=== PATIENT | male | born 1975 | race Caucasian/White ===

== ENCOUNTER 2021-05-30 19:10 | Inpatient (IN) ==
[2021-05-30] MEDS ORDERED: ACETAMINOPHEN 1,000 MG/100 ML VIAL IV STA (20:27)
--- NOTE | 2021-05-30 20:39 | Emergency Department Note ---
Impression & Plan Abdominal pain, Renal transplant recipient, Acute pancreatitis ED Provider Note NAME: RD WHITE AGE: 45 SEX: M : 1975 ARRIVES VIA: Walk-In INFORMANT: Patient, ED PROVIDER(S): Carlo Carlson MD CHIEF COMPLAINT: abd pain HPI: Previous records reveal this patient was here in June 2020 for pancre atitis. 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 The patient reports he has been having left upper quadrant abdominal pain that feels like pancreatitis although he has had normal amylase and lipase levels drawn as an outpatient. He reports breathing makes the pain worse and nothing really makes the pain better. ROS: See above HPI for pertinent positives & negatives. A total of 10 systems reviewed and were otherwise negative. PAST MEDICAL HISTORY: See Below PAST SURGICAL HISTORY: See Below FAMILY HISTORY: See Below SOCIAL HISTORY: See Below HOME MEDICATIONS: See Below ALLERGIES: See Below VITALS: See Below PHYSICAL EXAMINATION: VITAL SIGNS - Vital signs and nursing notes were reviewed. GENERAL - 45-year-old male appearing stated age who is in moderate distress. Communicates well with provider and answers questions appropriately. SKIN - Without rashes. HEAD - NC/AT. EYES - PERRL with EOMI bilaterally. Sclera anicteric. Palpebral conjunctiva pink and moist with no injection noted. EARS - No deformities of external structures noted on gross examination bilaterally. NOSE - Midline and without cyanosis. No epistaxis or purulent drainage noted. Septum midline without deviation or septal hematoma noted. MOUTH/OROPHARYNX - Without perioral cyanosis. Buccal mucosa pink and moist and without leukoplakia. Tongue midline with equal elevation of palate bilaterally. No tonsillar hypertrophy, erythema, or exudates noted. NECK - Neck with FROM. Supple to palpation. No nuchal rigidity. LUNGS - Chest wall symmetric without accessory muscle use, intercostals retractions, or central cyanosis. Normal vesicular breath sounds CTA B/L. No wheezes, rales, or rhonchi appreciated. CARDIAC - RRR with S1/S2. No murmur, rubs, or gallops appreciated. ABDOMEN - Abdominal contour without pulsations or visible masses. tender throughout abdomen EXTREMITIES - No clubbing or peripheral cyanosis. No pretibial edema present. +3/5 radial, posterior tibial, and dorsalis pedis pulses palpated throughout. +5/5 strength noted in UE/LE bilaterally. NEUROLOGIC - Cranial nerves II through XII grossly intact. Sensory intact to light touch throughout. Patellar reflexes +2/4. PSYCH - A&Ox3 and cooperates fully with examiner. Pt is very pleasant and interacts well with examiner. MEDICAL DECISION MAKING: Patient was seen and evaluated as above in room C1. Review was performed of nursing notes and vital signs. I did review pertinent previous visits and patient history. After obtaining a thorough history and physical examination the above work up was performed. This 45-year-old male who presents emergency department complaining of diffuse abdominal tenderness. The patient has a history of pancreatitis. His lipase was found to be grossly elevated at 1500. His CAT scan which was reviewed by me is concerning for acute on chronic pancreatitis. He was given IV Dilaudid as well as acetaminophen for his pain. I did discuss the case with the hospitalist service who did agree to admit the patient. Patient is in agreement with the treatment plan. An order was placed for continuous cardiac monitoring. The monitor shows a rate of 74 with Normal SInus rhythm. The patient was evaluated during a period of high volume and high acuity during the global COVID-19 pandemic, and that diagnosis was suspected/considered upon their initial presentation. Their evaluation, treatment and testing was consistent with current guidelines for patients who present with complaints or symptoms that may be related to COVID-19. Patient was seen while provider was wearing PPE. Triage Nursing notes reviewed. Prior medical records reviewed Vital Signs: reviewed and remarkable for no significant abnormalities Differential diagnosis: Appendicitis, testicular torsion, infections, diverticulitis, UTI, obstruction, mesenteric ischemia, aortic pathology, inflammatory bowel disease, renal colic, PUD, pancreatitis, biliary pathology, hernia, volvulus, constipation, as well as other pathologies. ER treatment provided: See below Diagnostics interpreted by me: ECG: is EKG shows a normal sinus rhythm possible left atrial enlargement QTC is 450 ventricular rate of [address] elevation or depression there is no previous EKG to compare to Laboratory studies: As stated above and show below. Imaging studies: CT was reviewed by me is concerning for pancreatitis CT abdomen pelvis without contrast: Acute on chronic pancreatitis cholecystectomy and bile biliary ectasia Small low-attenuation focus in the liver. Duodenal diverticulum. Atrophic [place] kidneys. Left nephrolithiasis. Left iliac fossa renal transplant. Atrophic right iliac fossa renal transplant. Colonic diverticula without diverticulitis. Consultation(s): Internal Medicine Past Med/Surg History Medical History Goodpastures syndrome Pancreatitis Surgical History Kidney transplant recipient Social History Smoking Status: Current every day smoker Tobacco Type: Cigarettes Do You Dip or Chew Tobacco: Yes; Hx Alcohol Use: Yes Hx Substance Use: No Preferred Language: Mongolian Communication Ability: Effective Cemetery Worker Required: No Beliefs That Will Affect Care: None Current Living Situation: Spouse Other Information That Helps Us Care for You: No Feels Safe at Home: Yes Safety Concerns: Feels Safe At This Time Assistive Devices: None Allergies Allergies Allergy/AdvReac Type Severity Reaction Status Date / Time lisinopril Allergy Intermediate TONGUE AND Verified 05/30/21 22:56 LIPS SWELL Home Meds Home Medications Medication Instructions Recorded Confirmed carvedilol 12.5 mg tablet 12.5 mg PO BID 06/18/20 05/30/21 mycophenolate mofetil 250 mg 1,000 mg PO BID 06/18/20 05/30/21 capsule (CellCept) tacrolimus 1 mg capsule, 1 mg PO QAM 06/18/20 05/30/21 immediate-release amlodipine 10 mg tablet (Norvasc) 10 mg PO QAM 05/30/21 05/30/21 aspirin 81 mg tablet,delayed 81 mg PO DAILY 05/30/21 05/30/21 release famotidine 10 mg tablet 10 mg PO HS 05/30/21 05/30/21 omeprazole 40 mg capsule,delayed 40 mg PO QAM 05/30/21 05/30/21 release prednisone 5 mg tablet 5 mg PO DAILY 05/30/21 05/30/21 tacrolimus 1 mg capsule, 2 mg PO QPM 05/30/21 05/30/21 immediate-release (Prograf) Results & Data (ED) Vital Signs Vital Signs - 24 hr 05/30/21 23:31 Pulse Rate 71 Pulse Rate from SpO2 Sensor 71 Respiratory Rate 17 Blood Pressure 185/124 H Blood Pressure Mean 144 Pulse Oximetry 99 Home Medications Current Medication List: was personally reviewed by al Laboratory Data Attestation: I reviewed the patient's lab results. Result diagrams: 05/31/21 06:41 05/31/21 06:41 Lab Results 05/30/21 05/30/21 05/30/21 Range/Units 20:45 20:45 20:50 WBC 10.79 (4.8-10.8) K/uL RBC 4.79 (4.7-6.1) M/uL Hgb 16.1 (14.0-18.0) g/dL Hct 48.0 (42-52) % MCV 100.2 H (80-100) fL MCH 33.6 (25-34) pg MCHC 33.5 (32-36) g/dL RDW Std Deviation 53.8 H (36.4-46.3) fL RDW Coeff of Virgil 14.6 H (11.5-14.5) % Plt Count 269 (130-400) K/uL MPV 9.2 (7.4-10.4) fL Immature Gran % (Auto) 0.4 % Neut % (Auto) 83.6 % Lymph % (Auto) 11.0 % [place] % (Auto) 4.3 % Eos % (Auto) 0.5 % Baso % (Auto) 0.2 % Neut # (Auto) 9.03 H (1.4-6.5) K/uL Lymph # (Auto) 1.19 L (1.2-3.4) K/uL [place] # (Auto) 0.46 (0.11-0.59) K/uL Eos # (Auto) 0.05 (0-0.5) K/uL Baso # (Auto) 0.02 (0-0.2) K/uL Immature Gran # (Auto) 0.04 H (0.00-0.02) K/uL Sodium 133 L (136-145) mmol/L Potassium 4.3 (3.5-5.1) mmol/L Chloride 106 (98-107) mmol/L Carbon Dioxide 20 L (21-32) mmol/L Anion Gap 7.0 (3-11) BUN 19 H (7-18) mg/dl Creatinine 1.83 H (0.6-1.4) mg/dl Est Cr Clr Drug Dosing 62.5 ml/min Est GFR ( Amer) 51.2 ml/min Est GFR (Non-Af Amer) 44.2 ml/min BUN/Creatinine Ratio 10.6 (10-20) Glucose 105 H (70-99) mg/dl Calcium 9.3 (8.5-10.1) mg/dl Total Bilirubin 0.5 (0.2-1) mg/dl AST 5 L (15-37) U/L ALT 12 (12-78) U/L Alkaline Phosphatase 116 (45-117) U/L Total Creatine Kinase 22 L (39-308) U/L CK-MB (CK-2) < 1.0 (0.5-3.6) ng/ml CK/CKMB % Calc TNP Troponin I < 0.015 (0-0.045) ng/ml Total Protein 7.3 (6.4-8.2) gm/dl Albumin 3.0 L (3.4-5.0) gm/dl Globulin 4.3 H (2.5-4.0) gm/dl Albumin/Globulin Ratio 0.7 L (0.9-2) Lipase 1597 H (73-393) U/L Urine Color Urine Appearance (Clear) Urine pH (4.5-7.5) Ur Specific Mobile (1.000-1.030) Urine Protein (Negative) Urine Glucose (UA) (Negative) Urine Ketones (Negative) Urine Blood (Negative) Urine Nitrite (Negative) Urine Bilirubin (Negative) Urine Urobilinogen (Negative) Ur Leukocyte Esterase (Negative) Urine WBC (Auto) (0-5) /hpf Urine RBC (Auto) (0-4) /hpf U Hyaline Cast (Auto) (0-5) /lpf U Epithel Cells (Auto) (0-5) /lpf Urine Bacteria (Auto) (Negative) COVID-19 Eval Order Covid19 at [facility] SARS-CoV-2 (PCR) (Negative) 05/30/21 05/30/21 Range/Units 20:50 21:00 WBC (4.8-10.8) K/uL RBC (4.7-6.1) M/uL Hgb (14.0-18.0) g/dL Hct (42-52) % MCV (80-100) fL MCH (25-34) pg MCHC (32-36) g/dL RDW Std Deviation (36.4-46.3) fL RDW Coeff of Virgil (11.5-14.5) % Plt Count (130-400) K/uL MPV (7.4-10.4) fL Immature Gran % (Auto) % Neut % (Auto) % Lymph % (Auto) % [place] % (Auto) % Eos % (Auto) % Baso % (Auto) % Neut # (Auto) (1.4-6.5) K/uL Lymph # (Auto) (1.2-3.4) K/uL [place] # (Auto) (0.11-0.59) K/uL Eos # (Auto) (0-0.5) K/uL Baso # (Auto) (0-0.2) K/uL Immature Gran # (Auto) (0.00-0.02) K/uL Sodium (136-145) mmol/L Potassium (3.5-5.1) mmol/L Chloride (98-107) mmol/L Carbon Dioxide (21-32) mmol/L Anion Gap (3-11) BUN (7-18) mg/dl Creatinine (0.6-1.4) mg/dl Est Cr Clr Drug Dosing ml/min Est GFR ( Amer) ml/min Est GFR (Non-Af Amer) ml/min BUN/Creatinine Ratio (10-20) Glucose (70-99) mg/dl Calcium (8.5-10.1) mg/dl Total Bilirubin (0.2-1) mg/dl AST (15-37) U/L ALT (12-78) U/L Alkaline Phosphatase (45-117) U/L Total Creatine Kinase (39-308) U/L CK-MB (CK-2) (0.5-3.6) ng/ml CK/CKMB % Calc Troponin I (0-0.045) ng/ml Total Protein (6.4-8.2) gm/dl Albumin (3.4-5.0) gm/dl Globulin (2.5-4.0) gm/dl Albumin/Globulin Ratio (0.9-2) Lipase (73-393) U/L Urine Color Yellow Urine Appearance Clear (Clear) Urine pH 5.5 (4.5-7.5) Ur Specific Mobile 1.011 (1.000-1.030) Urine Protein Trace H (Negative) Urine Glucose (UA) Negative (Negative) Urine Ketones Negative (Negative) Urine Blood Trace H (Negative) Urine Nitrite Negative (Negative) Urine Bilirubin Negative (Negative) Urine Urobilinogen Negative (Negative) Ur Leukocyte Esterase Negative (Negative) Urine WBC (Auto) 0 (0-5) /hpf Urine RBC (Auto) 0-4 (0-4) /hpf U Hyaline Cast (Auto) 0 (0-5) /lpf U Epithel Cells (Auto) 10-20 H (0-5) /lpf Urine Bacteria (Auto) Negative (Negative) COVID-19 Eval Order SARS-CoV-2 (PCR) NEGATIVE (Negative) Administered Medications Acetaminophen (Acetaminophen 325 Mg Tab) 650 mg PO Q4H PRN PRN Reason: pain/fever Stop: 06/30/21 01:14 Last Admin: 05/31/21 10:18 Dose: 650 mg Documented by: [id number] Admin: 05/31/21 06:26 Dose: 650 mg Documented by: [id number] Admin: 05/31/21 02:23 Dose: 650 mg Documented by: [id number] Amlodipine Besylate (Amlodipine Besylate 5 Mg Tab) 10 mg PO QAM [facility] Stop: 06/30/21 08:59 Last Admin: 05/31/21 08:46 Dose: 10 mg Documented by: [id number] Aspirin (Aspirin 81 Mg Ectab) 81 mg PO DAILY [facility] Stop: 06/30/21 08:59 Last Admin: 05/31/21 08:46 Dose: 81 mg Documented by: [id number] Carvedilol (Carvedilol 12.5 Mg Tab) 12.5 mg PO BID [facility] Stop: 06/30/21 08:59 Last Admin: 05/31/21 21:23 Dose: 12.5 mg Documented by: [id number] Admin: 05/31/21 08:46 Dose: 12.5 mg Documented by: [id number] Enoxaparin Sodium (Enoxaparin Inj 40 Mg/0.4 Ml Syr) 40 mg SQ Q24H [facility] Stop: 06/30/21 05:59 Last Admin: 05/31/21 06:28 Dose: 40 mg Documented by: [id number] Famotidine (Famotidine 10 Mg Tablet) 10 mg PO HS [facility] Stop: 06/30/21 20:59 Last Admin: 05/31/21 21:23 Dose: 10 mg Documented by: [id number] Hydromorphone HCl (Hydromorphone Inj 0.5 Mg/0.5 Ml Syr) 0.5 mg IV Q3H PRN PRN Reason: Pain Stop: 06/14/21 01:14 Last Admin: 05/31/21 22:06 Dose: 0.5 mg Documented by: [id number] Admin: 05/31/21 18:19 Dose: 0.5 mg Documented by: [id number] Admin: 05/31/21 14:20 Dose: 0.5 mg Documented by: [id number] Admin: 05/31/21 11:00 Dose: 0.5 mg Documented by: [id number] Admin: 05/31/21 07:55 Dose: 0.5 mg Documented by: [id number] Admin: 05/31/21 04:32 Dose: 0.5 mg Documented by: [id number] Lactated Ringer's (Lr) 1,000 mls @ 150 mls/hr IV .Q6H40M [facility] Stop: 06/30/21 01:14 Last Admin: 05/31/21 18:18 Dose: 150 mls/hr Documented by: [id number] Infusion: 05/31/21 15:27 Dose: 150 mls/hr Documented by: [id number] Admin: 05/31/21 08:46 Dose: 150 mls/hr Documented by: [id number] Infusion: 05/31/21 08:10 Dose: 150 mls/hr Documented by: [id number] Admin: 05/31/21 01:29 Dose: 150 mls/hr Documented by: [id number] Mycophenolate Mofetil (Mycophenolate Mofetil 250 Mg Cap) 1,000 mg PO BID [facility] Stop: 06/30/21 08:59 Last Admin: 05/31/21 21:23 Dose: 1,000 mg Documented by: [id number] Admin: 05/31/21 08:46 Dose: 1,000 mg Documented by: [id number] Pantoprazole Sodium (Pantoprazole 40 Mg Tab) [facility] Stop: 06/30/21 08:59 Last Admin: 05/31/21 08:46 Dose: 40 mg Documented by: [id number] Prednisone (Prednisone 5 Mg Tab) 5 mg PO DAILY [facility] Stop: 06/30/21 08:59 Last Admin: 05/31/21 08:47 Dose: 5 mg Documented by: [id number] Tacrolimus (Tacrolimus 1 Mg Cap) 1 mg PO QAM [facility] Stop: 06/30/21 08:59 Last Admin: 05/31/21 08:47 Dose: 1 mg Documented by: [id number] Tacrolimus (Tacrolimus 1 Mg Cap) 2 mg PO QPM [facility] Stop: 06/30/21 20:59 Last Admin: 05/31/21 21:23 Dose: 2 mg Documented by: [id number] Discontinued Medications Hydromorphone HCl (Hydromorphone Inj 1 Mg/Ml Syringe) 1 mg IV Q15M PRN PRN Reason: Pain Stop: 06/13/21 20:26 Last Admin: 05/30/21 22:45 Dose: 1 mg Documented by: [id number] Admin: 05/30/21 20:57 Dose: 1 mg Documented by: [id number] Hydromorphone HCl (Hydromorphone Inj 0.5 Mg/0.5 Ml Syr) Confirm Administered Dose 0.5 mg .ROUTE .STK-MED ONE Stop: 05/31/21 01:28 Last Admin: 05/31/21 01:29 Dose: 0.5 mg Documented by: [id number] Acetaminophen (Ofirmev) 1,000 mg in 100 mls @ 400 mls/hr IV NOW STA Stop: 05/30/21 20:41 Last Infusion: 05/30/21 22:01 Dose: 0 mls/hr Documented by: [id number] Admin: 05/30/21 20:57 Dose: 400 mls/hr Documented by: [id number] Imaging Data Radiologist's Impression: Chest X-Ray 05/30/21 20:27 XR chest 1V portable CLINICAL HISTORY: Shortness of breath. COMPARISON STUDY: None. FINDINGS: Lung volumes are normal. Lungs are clear. There is no pneumothorax or pleural effusion. Cardiac size is normal. Mediastinal contours are normal. There is no evidence for pulmonary edema. Surgical clips project over the right lower neck. IMPRESSION: No acute cardiopulmonary findings. ACT 112: Negative or not required by law. Electronically signed by: Jalil Melgar M.D. 05/30/2021 8:54 PM Chest X-Ray 05/30/21 20:27 XR chest 1V portable CLINICAL HISTORY: Shortness of breath. COMPARISON STUDY: None. FINDINGS: Lung volumes are normal. Lungs are clear. There is no pneumothorax or pleural effusion. Cardiac size is normal. Mediastinal contours are normal. There is no evidence for pulmonary edema. Surgical clips project over the right lower neck. IMPRESSION: No acute cardiopulmonary findings. ACT 112: Negative or not required by law. Electronically signed by: Jalil Melgar M.D. 05/30/2021 8:54 PM Abdomen/Pelvis CT 05/30/21 21:51 CT SCAN OF THE ABDOMEN AND PELVIS WITHOUT CONTRAST CLINICAL HISTORY: Diffuse abdominal pain COMPARISON STUDY: No previous studies for comparison. TECHNIQUE: CT scan of the abdomen and pelvis was performed from the lung bases to the proximal femurs. Images are reviewed in the axial, sagittal, and coronal planes. IV contrast was not administered for this examination. A dose lowering technique was utilized adhering to the principles of ALARA. CT DOSE: 951.20 mGy.cm FINDINGS: Lower chest: There are coronary artery calcifications. There are no pleural effusions. Liver: There is AR parenchymal consolidation adjacent to the gallbladder fossa. There is a to small to characterize 11 mm hypodensity within the liver medially beneath the dome of the diaphragm anteriorly Gallbladder: Surgically absent Spleen: Normal in size and attenuation. Pancreas: There are multiple pancreatic calcifications. There is infiltration of the peripancreatic soft tissues. The findings are indicative of acute on chronic pancreatitis. Adrenal glands: There is mild low density adrenal gland thickening Kidneys: The [place] kidneys are markedly atrophic. There is a left lower quadr ant transplant kidney. There is a right lower quadrant transplant kidney with marked cortical atrophy. Bowel: There are no transition zones indicate bowel obstruction. There is colonic diverticulosis. There is no evidence of acute diverticulitis. The appendix appears normal Peritoneum: There is no intraperitoneal free air or abdominal ascites. Vasculature: The abdominal aorta is normal in course and caliber. Adenopathy: None. Pelvic viscera: The bladder, and pelvic viscera are unremarkable. Skeletal structures: There is a suspected small sebaceous cyst within the right inguinal region. No destructive skeletal lesions are visualized IMPRESSION: 1. No evidence of bowel obstruction. No evidence of free air 2. Normal appendix. 3. No evidence of acute diverticulitis. 4. Severe [place]western [place] renal atrophy. 5. Atrophied right iliac fossa transplant kidney 6. Left iliac fossa transplant kidney with minimal collecting system prominence 7. Pancreatic calcifications or peripancreatic infiltration. The findings are indicative of acute on chronic pancreatitis ACT 112: Negative or not required by law. Electronically signed by: Murali Morales M.D. 05/31/2021 7:21 AM Discharge Plan Visit Data Chief Complaint: Abdominal Pain Stated Complaint: ab pain, vomit, nausea ED Provider: Carlo Carlson Discharge Problem: Abdominal pain, Renal transplant recipient, Acute pancreatitis Patient Disposition: Admitted As Inpatient Discharge Instructions Interventions: ED Discharge Assessment Last Done: 05/31/21 00:50 Discharge Problem: Abdominal pain Qualifiers: Abdominal location: unspecified location Qualified Code(s): R10.9 - Unspecified abdominal pain Acute pancreatitis Qualifiers: Pancreatitis type: unspecified pancreatitis type Acute pancreatitis complication: unspecified Qualified Code(s): K85.90 - Acute pancreatitis without necrosis or infection, unspecified
--- NOTE | 2021-05-30 20:55 | XRay Report ---
XR chest 1V portable CLINICAL HISTORY: Shortness of breath. COMPARISON STUDY: None. FINDINGS: Lung volumes are normal. Lungs are clear. There is no pneumothorax or pleural effusion. Car diac size is normal. Mediastinal contours are normal. There is no evidence for pulmonary edema. Surgi hardeep clips project over the right lower neck. IMPRESSION: No acute cardiopulmonary findings. ACT 112: Negative or not required by law. Electronically signed by: Jalil Melgar M.D. 05/30/2021 8:54 PM
[2021-05-30] MEDS: HYDROmorphone INJ 1 MG/ML SYRINGE IV PRN ×2 (20:57→22:45)
[2021-05-30 21:01] LABS: Basophils # (auto) 0.02 K/uL (0-0.2); Basophils % (auto) 0.2 %; Eosinophils # (auto) 0.05 K/uL (0-0.5); Eosinophils % (auto) 0.5 %; Hemoglobin 16.1 g/dL (14.0-18.0); Immature Granulocytes # (auto) 0.04 K/uL (0.00-0.02); Immature Granulocytes % (auto) 0.4 %; Lymphocytes # (auto) 1.19 K/uL (1.2-3.4); Mean Corpuscular Hemoglobin 33.6 pg (25-34); Mean Corpuscular Hgb Conc 33.5 g/dL (32-36); Mean Corpuscular Volume 100.2 fL (80-100); Mean Platelet Volume 9.2 fL (7.4-10.4); Monocytes # (auto) 0.46 K/uL (0.11-0.59); Monocytes % (auto) 4.3 %; Neutrophils # (auto) 9.03 K/uL (1.4-6.5); Neutrophils % (auto) 83.6 %; Platelet Count 269 K/uL (130-400); RDW Coefficient of Variation 14.6 % (11.5-14.5); RDW Standard Deviation 53.8 fL (36.4-46.3); Red Blood Count 4.79 M/uL (4.7-6.1); White Blood Count 10.79 K/uL (4.8-10.8)
[2021-05-30 21:21] LABS: Alanine Aminotransferase 12 U/L (12-78); BUN Creatinine Ratio 10.6 (10-20); Blood Urea Nitrogen 19 mg/dl (7-18); Calcium 9.3 mg/dl (8.5-10.1); Carbon Dioxide 20 mmol/L (21-32); Chloride 106 mmol/L (98-107); Creatinine Clr Calc Pharmacy 62.5 ml/min; Est GFR (African American) 51.2 ml/min; Est GFR (Non-African American) 44.2 ml/min; Glucose 105 mg/dl (70-99); Potassium 4.3 mmol/L (3.5-5.1); Sodium 133 mmol/L (136-145)
[2021-05-30 21:25] LABS: Albumin Globulin Ratio 0.7 (0.9-2); Alkaline Phosphatase 116 U/L (45-117); Aspartate Aminotransferase 5 U/L (15-37); Bilirubin,Total 0.5 mg/dl (0.2-1); Creatine Kinase 22 U/L (39-308); Creatine Kinase MB < 1.0 ng/ml (0.5-3.6); Globulin 4.3 gm/dl (2.5-4.0); Lipase 1597 U/L (73-393); Total Protein 7.3 gm/dl (6.4-8.2); Troponin I < 0.015 ng/ml (0-0.045)
[2021-05-30 21:35] LABS: Appearance Urine Clear (Clear); Bacteria Urine Automated Negative (Negative); Bilirubin Urine Negative (Negative); Blood Urine Trace (Negative); Cast Urine Automated 0 /lpf (0-5); Color Urine Yellow; Glucose Urine UA Negative (Negative); Ketones Urine Negative (Negative); Leukocyte Esterase Urine Negative (Negative); Nitrite Urine Negative (Negative); Protein Urine Trace (Negative); RBC Urine Automated 0-4 /hpf (0-4); Specific Gravity Urine 1.011 (1.000-1.030); Urobilinogen Urine Negative (Negative); WBC Urine Automated 0 /hpf (0-5); pH Urine 5.5 (4.5-7.5)
--- NOTE | 2021-05-31 01:13 | History and Physical Report ---
DATE OF ADMISSION: 05/30/2021. CHIEF COMPLAINT: Abdominal pain. HISTORY OF PRESENT ILLNESS: This is a 45-year-old male with past medical history significant for hyperlipidemia, hypothyroidism, pulmonary hypertension, history of chronic membranous glomerulonephritis, end-stage renal disease, status post renal transplant, history of alcoholism, history of anemia of chronic renal failure, history of ongoing tobacco abuse, presents with abdominal pain. The patient says he is having abdominal pain ongoing for 1 month. He was prescribed PPI, but it is not helping.Having nausea. He has lost his appetite and states he has lost some weight. The pain was not getting better, so came to the ER today. Imaging studies show acute on chronic pancreatitis and lipase is elevated at 1597. Currently hemodynamics are stable. Denies any other complaints. Normal bowel and bladder movements. Denies any hematuria or blood in the stools. He says sometimes he gets chest pain, shortness of breath, severe pain coming from his abdomen. Has smoker's cough. No fevers, no headache, no blurred visions, no earache, no runny nose, no sore throat, no dysphagia. ALLERGIES: LISINOPRIL. PAST MEDICAL HISTORY: As mentioned above. PAST SURGICAL HISTORY: ERCP, EGDs, exploration of the parathyroid glands, laparoscopic cholecystectomy, tonsillectomy, adenoidectomy, transplantation of kidneys in 2004 and also in 2018. MEDICATIONS: The patient is on amlodipine 10 mg p.o. daily, aspirin 81 mg p.o. daily, Coreg 12.5 mg p.o. b.i.d., famotidine 10 mg p.o. at bedtime, CellCept 1000 mg p.o. b.i.d., omeprazole 40 mg p.o. a.m., prednisone 5 mg p.o. daily, tacrolimus 1 mg p.o. a.m. and 2 mg p.m. FAMILY HISTORY: Significant for mother has diabetes. Father has esophageal cancer. SOCIAL HISTORY: Smokes half pack a day for last 20 years. History of alcoholism. Currently, drinks as per [place], occasional. No drug use. REVIEW OF SYSTEMS: As per HPI. Rest of the review of systems is negative. PHYSICAL EXAMINATION: GENERAL: The patient is of moderate build, not in acute distress. VITAL SIGNS: Temperature 36, pulse 76, respiratory rate 13, blood pressure 149/111, oxygen 100% on room air. HEENT: Pupils equal, round and reactive to light. Oral mucosa moist. NECK: No JVD or neck masses. HEART: S1 and S2 heard. Regular rate and rhythm. No murmur, no gallop. RESPIRATORY SYSTEM: Normal AP diameter. No accessory muscle use. No wheezing, no crackles. ABDOMEN: Soft, bowel sounds present. Tenderness in the upper abdomen. Mild guarding, no rigidity, no distention. No CVA tenderness. CENTRAL NERVOUS SYSTEM: Cranial nerves II through XII are grossly intact, nonfocal. EXTREMITIES: No edema, no erythema. LABORATORY DATA: WBC 10.7, hemoglobin 16.1, hematocrit 48, platelets 269. Sodium 133, potassium 4.3, chloride 106, bicarbonate 20, BUN 19, creatinine 1.8, serum glucose 105, calcium 9.3, total bilirubin 0.5, AST 5, ALT 12, alkaline phosphatase 116, total creatinine kinase 22. Troponin I less than 0.015. Lipase 1597. Urinalysis: Trace blood. SARS-CoV-2 PCR negative. Chest x-ray, no acute findings. EKG: Normal sinus rhythm, rate of 69, no acute ST changes seen. CT of abdomen and pelvis shows acute on chronic pancreatitis. ASSESSMENT AND PLAN: This is a 45-year-old male who presents with abdominal pain and found to have acute on chronic pancreatitis. 1. Acute on chronic pancreatitis. We will keep him n.p.o., IV Ringer's lactate 150 mL per hour. Repeat lactic acid in a.m. IV Dilaudid p.r.n., IV Zofran p.r.n. Consult GI in the a.m. 2. History of chronic membranous glomerulonephritis status post renal transplant twice, last one was done 3 years ago. Continue his transplant medications. Cr 1.8 We will monitor for any volume overload and follow labs.. 3. History of hypertension: Continue his Coreg, amlodipine. We will monitor the blood pressure. 4. GERD. Continue famotidine and omeprazole. 5. Ongoing tobacco abuse. Needs counseling. 6. Deep venous thrombosis prophylaxis, Lovenox. DISPOSITION: Admit to medical floor. Expect to discharge home. Follow up with family doctor. Job ID: [id number] [facility]
[2021-05-31] MEDS ORDERED: ONDANSETRON INJ 2 MG/ML 2 ML VIAL IV PRN (01:15)
[2021-05-31] MEDS ORDERED: HYDROmorphone INJ 0.5 MG/0.5 ML SYR ONE (01:27)
[2021-05-31] MEDS: LACTATED RINGER'S 1,000 ML IV SCH ×4 (01:29→23:39)
[2021-05-31] MEDS: ACETAMINOPHEN 325 MG TAB PO PRN ×4 (02:23→23:38)
[2021-05-31] MEDS: HYDROmorphone INJ 0.5 MG/0.5 ML SYR IV PRN ×6 (04:32→22:06)
[2021-05-31] MEDS: ENOXAPARIN INJ 40 MG/0.4 ML SYR SQ SCH (06:28)
--- NOTE | 2021-05-31 07:22 | CT Scan Report ---
CT SCAN OF THE ABDOMEN AND PELVIS WITHOUT CONTRAST CLINICAL HISTORY: Diffuse abdominal pain COMPARISON STUDY: No previous studies for comparison. TECHNIQUE: CT scan of the abdomen and pelvis was performed from the lung bases to the proximal femurs . Images are reviewed in the axial, sagittal, and coronal planes. IV contrast was not administered fo r this examination. A dose lowering technique was utilized adhering to the principles of ALARA. CT DOSE: 951.20 mGy.cm FINDINGS: Lower chest: There are coronary artery calcifications. There are no pleural effusions. Liver: There is AR parenchymal consolidation adjacent to the gallbladder fossa. There is a to small t o characterize 11 mm hypodensity within the liver medially beneath the dome of the diaphragm anterior ly Gallbladder: Surgically absent Spleen: Normal in size and attenuation. Pancreas: There are multiple pancreatic calcifications. There is infiltration of the peripancreatic s oft tissues. The findings are indicative of acute on chronic pancreatitis. Adrenal glands: There is mild low density adrenal gland thickening Kidneys: The sit[place] kidneys are markedly atrophic. There is a left lower quadrant transplant kidney. There is a right lower quadrant transplant kidney with marked cortical atrophy. Bowel: There are no transition zones indicate bowel obstruction. There is colonic diverticulosis. The re is no evidence of acute diverticulitis. The appendix appears normal Peritoneum: There is no intraperitoneal free air or abdominal ascites. Vasculature: The abdominal aorta is normal in course and caliber. Adenopathy: None. Pelvic viscera: The bladder, and pelvic viscera are unremarkable. Skeletal structures: There is a suspected small sebaceous cyst within the right inguinal region. No d estructive skeletal lesions are visualized IMPRESSION: 1. No evidence of bowel obstruction. No evidence of free air 2. Normal appendix. 3. No evidence of acute diverticulitis. 4. Severe sitka renal atrophy. 5. Atrophied right iliac fossa transplant kidney 6. Left iliac fossa transplant kidney with minimal collecting system prominence 7. Pancreatic calcifications or peripancreatic infiltration. The findings are indicative of acute on chronic pancreatitis ACT 112: Negative or not required by law. Electronically signed by: Murali Morales M.D. 05/31/2021 7:21 AM
[2021-05-31 07:24] LABS: Basophils # (auto) 0.02 K/uL (0-0.2); Basophils % (auto) 0.2 %; Eosinophils # (auto) 0.11 K/uL (0-0.5); Eosinophils % (auto) 1.1 %; Hematocrit (blood only) 47.5 % (42-52); Hemoglobin 15.4 g/dL (14.0-18.0); Immature Granulocytes # (auto) 0.03 K/uL (0.00-0.02); Immature Granulocytes % (auto) 0.3 %; Lymphocytes # (auto) 1.04 K/uL (1.2-3.4); Lymphocytes % (auto) 10.8 %; Mean Corpuscular Hemoglobin 32.4 pg (25-34); Mean Corpuscular Hgb Conc 32.4 g/dL (32-36); Mean Corpuscular Volume 99.8 fL (80-100); Mean Platelet Volume 9.2 fL (7.4-10.4); Monocytes # (auto) 0.49 K/uL (0.11-0.59); Monocytes % (auto) 5.1 %; Neutrophils # (auto) 7.91 K/uL (1.4-6.5); Neutrophils % (auto) 82.5 %; Platelet Count 235 K/uL (130-400); RDW Coefficient of Variation 14.7 % (11.5-14.5); RDW Standard Deviation 54.2 fL (36.4-46.3); Red Blood Count 4.76 M/uL (4.7-6.1)
[2021-05-31 07:39] LABS: Calcium 8.9 mg/dl (8.5-10.1); Magnesium 1.8 mg/dl (1.8-2.4); Potassium 4.1 mmol/L (3.5-5.1)
[2021-05-31 08:15] LABS: BUN Creatinine Ratio 13.2 (10-20); Creatinine Clr Calc Pharmacy 72.6 ml/min; Est GFR (African American) 61.7 ml/min; Est GFR (Non-African American) 53.2 ml/min
[2021-05-31] MEDS: amLODIPine BESYLATE 5 MG TAB PO SCH (08:46)
[2021-05-31] MEDS: carvediloL 12.5 MG TAB PO SCH ×2 (08:46→21:23)
[2021-05-31] MEDS: PANTOprazole 40 MG TAB PO SCH (08:46)
[2021-05-31] MEDS: ASPIRIN 81 MG ECTAB PO SCH (08:46)
[2021-05-31] MEDS: MYCOPHENOLATE MOFETIL 250 MG CAP PO SCH ×2 (08:46→21:23)
[2021-05-31] MEDS: TACROLIMUS 1 MG CAP PO SCH ×2 (08:47→21:23)
[2021-05-31] MEDS: predniSONE 5 MG TAB PO SCH (08:47)
--- NOTE | 2021-05-31 08:50 | Electrocardiogram Report ---
Test Reason : Blood Pressure : / mmHG Vent. Rate : 069 BPM Atrial Rate : 069 BPM P-R Int : 142 ms QRS Dur : 084 ms QT Int : 420 ms P-R-T Axes : 043 027 067 degrees QTc Int : 450 ms Normal sinus rhythm Left atrial enlargement Borderline ECG No previous ECGs available Confirmed by Noe Luciano ([id number]) on 05/31/2021 8:50:10 AM Referred By: REFERRED SELF Confirmed By:Noe Luciano
--- NOTE | 2021-05-31 10:18 | Gastrointestinal Consultation ---
Date of Consultation May 31, 2021 Assessment & Plan (1) Acute pancreatitis: Pt is a 45 y/o male w hx of chronic glomerulonephritis, ESRD s/p renal transplant x 2, ongoing tobacco/ETOH abuses, admitted with suspected ETOH induced pancreatitis. He has hx of biliary stricture, signs of chronic pancreatitis, is s/p cholecystectomy - IVF w LR - CL diet - ETOH and tobacco cessation advised - Symptomatic management with antiemetics, analgesics; avoid prolonged use of narcotics as he may develop ileus - EUS eval in OP setting 4-6 weeks time - F/U Transplant clinic for continued transplant care Supervising Physician Co-Signing Physician Notes I saw and evaluated the patient. We were consulted for evaluation of new onset pancreatitis in the setting of alcohol and tobacco abuse. Patient does have a history of glomerulonephritis and is status post renal transplantation x2. He notes that his abdominal pain is starting to improve today. He denies fevers chills sweats or rigors. Physical examination No obvious distress, no scleral icterus Mild epigastric tenderness noted Impression: Patient admitted with mild pancreatitis likely related to underlying alcohol abuse. Would recommend IV hydration as you are doing and abstinence from alcohol and tobacco abuse. With regard to further diagnostic evaluation we would recommend endoscopic ultrasound in 6 to 8 weeks as an outpatient to screen for evidence of other causes of pancreatitis such as gallstones. Please call with any questions or concerns during remainder the hospital admission. History of Present Illness Reason for Consultation: Pancreatitis Requesting Physician: Dr. Mikey Lopez Attending Physician: Dr. Nubia Ordoñez History of Present Illness Pt is a 45 y/o w PMHx of HLD, hypothyroidism, pulmonary HTN, chronic membranous glomerulonephritis, ESRD s/p renal transplant x 2, alcoholism, tobacco abuse who presented to ED yesterday w c/o abd pain and nausea, poor appetite that's progressive over last month. Upon evaluation, labs showed no leukocytosis, normal liver function test, kidney function at baseline, however lipase was elevated at 1500s. CT abd/pelvis w signs of pancreatic calcifications or peripa ncreatic infiltration. The findings are indicative of acute on chronic pancreatitis. Pt reports he has had 2 bouts of pancreatitis this past year, suspected ETOH induced. Hx of gastritis, duodenitis on prior EGD. ERCP in 09/[address] 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 Dr. Clark was unable to locate ampulla in order to do biliary cannulation. He recommended that if biliary drainage is required, this can be accomplished by EUS-guided choledocho-duodenostomy with a fully covered stent. Pt smokes >1PPD. He admits to last had 18 mixed tea drinks in a day's time in April. He is s/p cholecystectomy. Denies new meds, herbal supplements, illicit drugs. Denies family hx of autoimmune pancreatitis. Allergies Allergy/AdvReac Type Severity Reaction Status Date / Time lisinopril Allergy Intermediate TONGUE AND Verified 05/30/21 22:56 LIPS SWELL Home Medications Medication Instructions Recorded Confirmed Type carvedilol 12.5 mg tablet 12.5 mg PO BID 06/18/20 05/30/21 History mycophenolate mofetil 250 mg 1,000 mg PO BID 06/18/20 05/30/21 History capsule (CellCept) tacrolimus 1 mg capsule, 1 mg PO QAM 06/18/20 05/30/21 History immediate-release amlodipine 10 mg tablet (Norvasc) 10 mg PO QAM 05/30/21 05/30/21 History aspirin 81 mg tablet,delayed 81 mg PO DAILY 05/30/21 05/30/21 History release famotidine 10 mg tablet 10 mg PO HS 05/30/21 05/30/21 History omeprazole 40 mg capsule,delayed 40 mg PO QAM 05/30/21 05/30/21 History release prednisone 5 mg tablet 5 mg PO DAILY 05/30/21 05/30/21 History tacrolimus 1 mg capsule, 2 mg PO QPM 05/30/21 05/30/21 History immediate-release (Prograf) Patient History Medical History Goodpastures syndrome Pancreatitis Surgical History Kidney transplant recipient Social History Smoking Status: Current every day smoker Tobacco Type: Cigarettes Do You Dip or Chew Tobacco: Yes; Hx Alcohol Use: Yes Hx Substance Use: No Preferred Language: Pashto Communication Ability: Effective 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 Hand Required: No Beliefs That Will Affect Care: None Current Living Situation: Spouse Other Information That Helps Us Care for You: No Feels Safe at Home: Yes Safety Concerns: Feels Safe At This Time Assistive Devices: None Review of Systems Review of Systems: All systems reviewed & are unremarkable except as noted in HPI & below Physical Exam Constitutional: WD/WN, vitals as above well groomed, cooperative and comfortable Eyes: PERRL, conjunctivae normal, anicteric sclerae ENMT: external ear and nose normal, oropharynx normal Respiratory: normal respiratory effort, lungs clear to auscultation Cardiovascular: RRR, no murmur, no edema Gastrointestinal (Abdomen): Hypoactive, TTP RUQ area, mildly distended Skin: no rashes, warm and dry no jaundice Psychiatric: A+Ox3, euthymic affect Lymphatic: no lymphedema Results & Data ([facility]) Vital Signs (Past 12 Hours) Vital Signs Temp Pulse Pulse Pulse Resp BP BP 05/31/21 08:08 36.6 C 78 16 179/119 H 05/31/21 02:16 66 173/115 H 05/31/21 01:52 36.5 C 69 20 193/142 H 05/31/21 00:30 62 16 153/96 H 05/31/21 00:00 67 19 189/115 H 05/30/21 23:31 71 17 185/124 H 05/30/21 23:00 76 13 149/111 H 05/30/21 22:30 71 16 173/108 H Pulse Ox 05/31/21 08:08 98 05/31/21 02:16 05/31/21 01:52 100 05/31/21 00:30 97 05/31/21 00:00 99 05/30/21 23:31 99 05/30/21 23:00 100 05/30/21 22:30 100 (1) Acute pancreatitis Acute pancreatitis complication: unspecified Pancreatitis type: unspecified pancreatitis type Qualified Code(s): K85.90 - Acute pancreatitis without necrosis or infection, unspecified
--- NOTE | 2021-05-31 19:09 | Hospitalist Progress Note ---
Date of Service May 31, 2021 Assessment & Plan (1) Acute pancreatitis: Plan: History of pancreatitis and was admitted with another attack of pancreatitis Presented with abdominal pain that goes to the back Elevated lipase to more than 1000 Has been on n.p.o., IV fluid and IV supportive medications Appreciate GI input and recommendation We will have EUS as an outpatient (2) Abdominal pain: Plan: DT acute pancreatitis (3) Renal transplant recipient: Plan: Status post renal transplant with history of Goodpasture's syndrome Creatinine is mildly elevated We will keep in touch with the transplant team if the condition gets worse (4) CKD (chronic kidney disease): Plan: Chronic kidney disease and stage III Creatinine has been improving with IV fluid Monitor PRP Plan: History of hypertension Continue Coreg and amlodipine GERD Has been on PPI Ongoing tobacco abuse Advised to quit DVT prophylaxis On Lovenox Admission and Anticipated Discharge Date Admission Date: May 30, 2021 Subjective 05/31/2021 The patient was seen and examined in medical floor He has been complaining of abdominal pain that goes to the back without any nausea and or vomiting or diarrhea He is feeling a little bit better since admission Review of Systems Review of Systems: All systems reviewed and are unremarkable except as noted below Gastrointestinal: Abdominal pain that goes to the back Physical Exam Physical Exam: Lying in bed with some discomfort Constitutional: well developed, well nourished, + ill appearing and + obese Eyes: PERRL, conjunctivae normal, anicteric sclerae ENMT: external ear and nose normal, oropharynx normal Neck: trachea midline, no thyromegaly Respiratory: no respiratory distress Auscultation: lungs clear to auscultation bilaterally Cardiovascular: Rate/Rhythm: regular rate and regular rhythm Heart Sounds: normal S1 and normal S2; no murmur Gastrointestinal (Abdomen): Inspection/Auscultation: + abdomen distended Percussion/Palpation: + abdomen tender (Mildly tender in the epigastrium) and abdomen soft Musculoskeletal: No acute arthritis in any joint Neurologic: moves all extremities Results & Data Results & Data ([facility]) Vital Signs (Past 12 Hours) Vital Signs Temp Pulse Resp BP Pulse Ox 05/31/21 16:05 36.4 C L 74 20 153/91 H 97 05/31/21 08:08 36.6 C 78 16 179/119 H 98 Laboratory Results Short CBC 05/30/21 05/31/21 Range/Units 20:45 06:41 WBC 10.79 9.60 (4.8-10.8) K/uL Hgb 16.1 15.4 (14.0-18.0) g/dL Hct 48.0 47.5 (42-52) % Plt Count 269 235 (130-400) K/uL BMP 05/30/21 05/31/21 20:45 06:41 Sodium 133 L 135 L Potassium 4.3 4.1 Chloride 106 109 H Carbon Dioxide 20 L 20 L BUN 19 H 21 H Creatinine 1.83 H 1.57 H Glucose 105 H 90 Calcium 9.3 8.9 Cardiac Enzymes 05/30/21 Range/Units 20:45 Total Creatine Kinase 22 L (39-308) U/L CK-MB (CK-2) < 1.0 (0.5-3.6) ng/ml Troponin I < 0.015 (0-0.045) ng/ml Liver Function 05/30/21 Range/Units 20:45 Total Bilirubin 0.5 (0.2-1) mg/dl AST 5 L (15-37) U/L ALT 12 (12-78) U/L Alkaline Phosphatase 116 (45-117) U/L Albumin 3.0 L (3.4-5.0) gm/dl Urine 05/30/21 Range/Units 21:00 Urine Color Yellow Urine Appearance Clear (Clear) Urine pH 5.5 (4.5-7.5) Ur Specific [place] 1.011 (1.000-1.030) Urine Protein Trace H (Negative) Urine Glucose (UA) Negative (Negative) Medications Administered Current Inpatient Medications Acetaminophen (Acetaminophen 325 Mg Tab) 650 mg PO Q4H PRN PRN Reason: pain/fever Stop: 06/30/21 01:14 Last Admin: 05/31/21 10:18 Dose: 650 mg Documented by: Amlodipine Besylate (Amlodipine Besylate 5 Mg Tab) [facility] Stop: 06/30/21 08:59 Last Admin: 05/31/21 08:46 Dose: 10 mg Documented by: Aspirin (Aspirin 81 Mg Ectab) 81 mg PO DAILY [facility] Stop: 06/30/21 08:59 Last Admin: 05/31/21 08:46 Dose: 81 mg Documented by: Carvedilol (Carvedilol 12.5 Mg Tab) 12.5 mg PO BID [facility] Stop: 06/30/21 08:59 Last Admin: 05/31/21 08:46 Dose: 12.5 mg Documented by: Enoxaparin Sodium (Enoxaparin Inj 40 Mg/0.4 Ml Syr) 40 mg SQ Q24H [facility] Stop: 06/30/21 05:59 Last Admin: 05/31/21 06:28 Dose: 40 mg Documented by: Famotidine (Famotidine 10 Mg Tablet) 10 mg PO HS [facility] Stop: 06/30/21 20:59 Hydromorphone HCl (Hydromorphone Inj 0.5 Mg/0.5 Ml Syr) 0.5 mg IV Q3H PRN PRN Reason: Pain Stop: 06/14/21 01:14 Last Admin: 05/31/21 18:19 Dose: 0.5 mg Documented by: Lactated Ringer's (Lr) 1,000 mls @ 150 mls/hr IV .Q6H40M [facility] Stop: 06/30/21 01:14 Last Admin: 05/31/21 18:18 Dose: 150 mls/hr Documented by: Mycophenolate Mofetil (Mycophenolate Mofetil 250 Mg Cap) 1,000 mg PO BID [facility] Stop: 06/30/21 08:59 Last Admin: 05/31/21 08:46 Dose: 1,000 mg Documented by: Ondansetron HCl (Ondansetron Inj 2 Mg/Ml 2 Ml Vial) 4 mg IV Q6H PRN PRN Reason: Nausea Stop: 06/30/21 01:14 Pantoprazole Sodium (Pantoprazole 40 Mg Tab) [facility] [place] [facility]; Protocol Stop: 06/30/21 08:59 Last Admin: 05/31/21 08:46 Dose: 40 mg Documented by: Prednisone (Prednisone 5 Mg Tab) 5 mg PO DAILY [facility] Stop: 06/30/21 08:59 Last Admin: 05/31/21 08:47 Dose: 5 mg Documented by: Tacrolimus (Tacrolimus 1 Mg Cap) 1 mg PO QAM [facility] Stop: 06/30/21 08:59 Last Admin: 05/31/21 08:47 Dose: 1 mg Documented by: Tacrolimus (Tacrolimus 1 Mg Cap) 2 mg PO QPM [facility] Stop: 06/30/21 20:59 (1) Acute pancreatitis Acute pancreatitis complication: unspecified Pancreatitis type: unspecified pancreatitis type Qualified Code(s): K85.90 - Acute pancreatitis without necrosis or infection, unspecified (2) Abdominal pain Abdominal location: unspecified location Qualified Code(s): R10.9 - Unspecified abdominal pain
[2021-05-31] MEDS: FAMOTIDINE 10 MG TABLET PO SCH (21:23)
[2021-06-01] MEDS: HYDROmorphone INJ 0.5 MG/0.5 ML SYR IV PRN ×6 (02:19→23:58)
[2021-06-01] MEDS: LACTATED RINGER'S 1,000 ML IV SCH ×3 (05:29→18:27)
[2021-06-01] MEDS: ENOXAPARIN INJ 40 MG/0.4 ML SYR SQ SCH (06:03)
[2021-06-01] MEDS: TACROLIMUS 1 MG CAP PO SCH ×2 (09:00→21:41)
[2021-06-01] MEDS: MYCOPHENOLATE MOFETIL 250 MG CAP PO SCH ×2 (09:00→21:42)
[2021-06-01] MEDS: ASPIRIN 81 MG ECTAB PO SCH (09:01)
[2021-06-01] MEDS: predniSONE 5 MG TAB PO SCH (09:01)
[2021-06-01] MEDS: amLODIPine BESYLATE 5 MG TAB PO SCH (09:02)
[2021-06-01] MEDS: PANTOprazole 40 MG TAB PO SCH (09:02)
[2021-06-01] MEDS: carvediloL 12.5 MG TAB PO SCH ×2 (09:02→21:41)
[2021-06-01] MEDS: ACETAMINOPHEN 325 MG TAB PO PRN (09:06)
[2021-06-01 09:07] LABS: Basophils # (auto) 0.01 K/uL (0-0.2); Basophils % (auto) 0.2 %; Eosinophils # (auto) 0.11 K/uL (0-0.5); Hematocrit (blood only) 40.6 % (42-52); Hemoglobin 13.1 g/dL (14.0-18.0); Immature Granulocytes # (auto) 0.03 K/uL (0.00-0.02); Immature Granulocytes % (auto) 0.5 %; Lymphocytes # (auto) 1.17 K/uL (1.2-3.4); Lymphocytes % (auto) 20.8 %; Mean Corpuscular Hemoglobin 31.9 pg (25-34); Mean Corpuscular Hgb Conc 32.3 g/dL (32-36); Mean Corpuscular Volume 98.8 fL (80-100); Mean Platelet Volume 9.2 fL (7.4-10.4); Monocytes # (auto) 0.34 K/uL (0.11-0.59); Neutrophils # (auto) 3.97 K/uL (1.4-6.5); Neutrophils % (auto) 70.5 %; Platelet Count 192 K/uL (130-400); RDW Coefficient of Variation 14.7 % (11.5-14.5); RDW Standard Deviation 53.6 fL (36.4-46.3); Red Blood Count 4.11 M/uL (4.7-6.1); White Blood Count 5.63 K/uL (4.8-10.8)
[2021-06-01 09:44] LABS: BUN Creatinine Ratio 12.5 (10-20); Calcium 8.8 mg/dl (8.5-10.1); Creatinine Clr Calc Pharmacy 87.7 ml/min; Est GFR (African American) 77.5 ml/min; Est GFR (Non-African American) 66.8 ml/min; Magnesium 1.8 mg/dl (1.8-2.4); Phosphorus 2.1 mg/dl (2.5-4.9); Potassium 3.9 mmol/L (3.5-5.1)
--- NOTE | 2021-06-01 15:54 | Hospitalist Progress Note ---
Date of Service June 01, 2021 Assessment & Plan (1) Acute pancreatitis: Plan: History of pancreatitis and was admitted with another attack of pancreatitis Presented with abdominal pain that goes to the back Elevated lipase to more than 1000 Has been on n.p.o., IV fluid and IV supportive medications Appreciate GI input and recommendation We will have EUS as an outpatient Lipid profile is unremarkable Clinically much better today with lipase is almost normal at 476 today We will advance diet to full liquid Decrease IV pain medications Possible discharge tomorrow (2) Abdominal pain: Plan: DT acute pancreatitis (3) Renal transplant recipient: Plan: Status post renal transplant with history of Goodpasture's syndrome Creatinine is mildly elevated We will keep in touch with the transplant team if the condition gets worse Creatinine has been normalized (4) CKD (chronic kidney disease): Plan: Chronic kidney disease and stage III Creatinine has been improving with IV fluid Monitor PRP Plan: History of hypertension Continue Coreg and amlodipine GERD Has been on PPI Ongoing tobacco abuse Advised to quit DVT prophylaxis On Lovenox Admission and Anticipated Discharge Date Admission Date: May 30, 2021 Subjective 05/31/2021 The patient was seen and examined in medical floor He has been complaining of abdominal pain that goes to the back without any nausea and or vomiting or diarrhea He is feeling a little bit better since admission 06/01/2021 Patient was seen and examined in medical floor He has been feeling a little bit better with decreasing abdominal pain and no nausea and or vomiting or diarrhea Denies any other symptoms Review of Systems Review of Systems: All systems reviewed and are unremarkable except as noted below Gastrointestinal: Abdominal pain that goes to the back Physical Exam Physical Exam: Lying in bed with some discomfort Constitutional: well developed, well nourished, + ill appearing and + obese Eyes: PERRL, conjunctivae normal, anicteric sclerae ENMT: external ear and nose normal, oropharynx normal Neck: trachea midline, no thyromegaly Respiratory: no respiratory distress Auscultation: lungs clear to auscultation bilaterally Cardiovascular: Rate/Rhythm: regular rate and regular rhythm Heart Sounds: normal S1 and normal S2; no murmur Gastrointestinal (Abdomen): Inspection/Auscultation: abdomen not distended Percussion/Palpation: + abdomen tender (Mildly tender in the epigastrium) and abdomen soft Musculoskeletal: No acute arthritis in any joint Neurologic: moves all extremities Results & Data Results & Data ([facility]) Vital Signs (Past 12 Hours) Vital Signs Temp Pulse Resp BP Pulse Ox 06/01/21 14:47 36.7 C 64 16 148/89 H 97 06/01/21 07:15 36.7 C 68 16 151/93 H 96 Laboratory Results Short CBC 06/01/21 Range/Units 08:29 WBC 5.63 (4.8-10.8) K/uL Hgb 13.1 L (14.0-18.0) g/dL Hct 40.6 L (42-52) % Plt Count 192 (130-400) K/uL BMP 06/01/21 08:29 Sodium 138 Potassium 3.9 Chloride 110 H Carbon Dioxide 20 L BUN 16 Creatinine 1.30 Glucose 82 Calcium 8.8 Medications Administered Current Inpatient Medications Acetaminophen (Acetaminophen 325 Mg Tab) 650 mg PO Q4H PRN PRN Reason: pain/fever Stop: 06/30/21 01:14 Last Admin: 06/01/21 09:06 Dose: 650 mg Documented by: Amlodipine Besylate (Amlodipine Besylate 5 Mg Tab) 10 mg PO QAM [facility] Stop: 06/30/21 08:59 Last Admin: 06/01/21 09:02 Dose: 10 mg Documented by: Aspirin (Aspirin 81 Mg Ectab) 81 mg PO DAILY [facility] Stop: 06/30/21 08:59 Last Admin: 06/01/21 09:01 Dose: 81 mg Documented by: Carvedilol (Carvedilol 12.5 Mg Tab) 12.5 mg PO BID [facility] Stop: 06/30/21 08:59 Last Admin: 06/01/21 09:02 Dose: 12.5 mg Documented by: Enoxaparin Sodium (Enoxaparin Inj 40 Mg/0.4 Ml Syr) 40 mg SQ Q24H [facility] Stop: 06/30/21 05:59 Last Admin: 06/01/21 06:03 Dose: 40 mg Documented by: Famotidine (Famotidine 10 Mg Tablet) 10 mg PO HS [facility] Stop: 06/30/21 20:59 Last Admin: 05/31/21 21:23 Dose: 10 mg Documented by: Hydromorphone HCl (Hydromorphone Inj 0.5 Mg/0.5 Ml Syr) 0.5 mg IV Q4H PRN PRN Reason: Pain Stop: 06/14/21 12:59 Last Admin: 06/01/21 14:12 Dose: 0.5 mg Documented by: Lactated Ringer's (Lr) 1,000 mls @ 150 mls/hr IV .Q6H40M [facility] Stop: 06/30/21 01:14 Last Admin: 06/01/21 11:39 Dose: 150 mls/hr Documented by: Mycophenolate Mofetil (Mycophenolate Mofetil 250 Mg Cap) 1,000 mg PO BID [facility] Stop: 06/30/21 08:59 Last Admin: 06/01/21 09:00 Dose: 1,000 mg Documented by: Ondansetron HCl (Ondansetron Inj 2 Mg/Ml 2 Ml Vial) 4 mg IV Q6H PRN PRN Reason: Nausea Stop: 06/30/21 01:14 Pantoprazole Sodium (Pantoprazole 40 Mg Tab) 40 mg PO QAM [facility]; Protocol Stop: 06/30/21 08:59 Last Admin: 06/01/21 09:02 Dose: 40 mg Documented by: Prednisone (Prednisone 5 Mg Tab) 5 mg PO DAILY [facility] Stop: 06/30/21 08:59 Last Admin: 06/01/21 09:01 Dose: 5 mg Documented by: Tacrolimus (Tacrolimus 1 Mg Cap) 1 mg PO QAM [facility] Stop: 06/30/21 08:59 Last Admin: 06/01/21 09:00 Dose: 1 mg Documented by: Tacrolimus (Tacrolimus 1 Mg Cap) 2 mg PO QPM [facility] Stop: 06/30/21 20:59 Last Admin: 05/31/21 21:23 Dose: 2 mg Documented by: (1) Acute pancreatitis Acute pancreatitis complication: unspecified Pancreatitis type: unspecified pancreatitis type Qualified Code(s): K85.90 - Acute pancreatitis without necrosis or infection, unspecified (2) Abdominal pain Abdominal location: unspecified location Qualified Code(s): R10.9 - Unspecified abdominal pain
[2021-06-01] MEDS: FAMOTIDINE 10 MG TABLET PO SCH (22:34)
[2021-06-01] MEDS ORDERED: hydrALAZINE HCL 20 MG/ML VIAL IV STA (22:50)
[2021-06-02] MEDS: LACTATED RINGER'S 1,000 ML IV SCH ×3 (00:38→14:25)
[2021-06-02] MEDS ORDERED: hydrALAZINE HCL 20 MG/ML VIAL IV STA ×2 (00:55→08:43)
[2021-06-02] MEDS ORDERED: HYDROmorphone INJ 0.5 MG/0.5 ML SYR IV STA (02:48)
[2021-06-02] MEDS: ACETAMINOPHEN 325 MG TAB PO PRN (03:03)
[2021-06-02] MEDS: ENOXAPARIN INJ 40 MG/0.4 ML SYR SQ SCH (05:38)
[2021-06-02] MEDS ORDERED: cloNIDine HCL 0.1 MG TAB PO ONE (06:15)
[2021-06-02 07:12] LABS: Calcium 9.5 mg/dl (8.5-10.1); Creatinine Clr Calc Pharmacy 91.2 ml/min; Est GFR (African American) 81.2 ml/min; Est GFR (Non-African American) 70.1 ml/min; Magnesium 1.6 mg/dl (1.8-2.4); Potassium 3.5 mmol/L (3.5-5.1)
[2021-06-02 07:13] LABS: Phosphorus 1.9 mg/dl (2.5-4.9)
[2021-06-02] MEDS: HYDROmorphone INJ 0.5 MG/0.5 ML SYR IV PRN (07:50)
[2021-06-02] MEDS: TACROLIMUS 1 MG CAP PO SCH (09:21)
[2021-06-02] MEDS: MYCOPHENOLATE MOFETIL 250 MG CAP PO SCH (09:22)
[2021-06-02] MEDS: PANTOprazole 40 MG TAB PO SCH (09:22)
[2021-06-02] MEDS: predniSONE 5 MG TAB PO SCH (09:22)
[2021-06-02] MEDS: amLODIPine BESYLATE 5 MG TAB PO SCH (09:23)
[2021-06-02] MEDS: carvediloL 12.5 MG TAB PO SCH (09:23)
[2021-06-02] MEDS: ASPIRIN 81 MG ECTAB PO SCH (09:23)
[2021-06-02] MEDS ORDERED: POTASSIUM PHOS 3 MMOL/1 ML INFUSION IV STA (11:08)
[2021-06-02] MEDS ORDERED: POTASSIUM PHOSPHATE 30 MMOL in SODIUM CHLORIDE 0.9% 500 ML IV ONE (11:30)
--- NOTE | 2021-06-02 15:18 | Hospitalist Progress Note ---
Date of Service June 02, 2021 Assessment & Plan (1) Acute pancreatitis: Plan: History of pancreatitis and was admitted with another attack of pancreatitis Presented with abdominal pain that goes to the back Elevated lipase to more than 1000 Has been on n.p.o., IV fluid and IV supportive medications Appreciate GI input and recommendation We will have EUS as an outpatient Lipid profile is unremarkable Clinically much better today with lipase is almost normal at 476 today We will advance diet to full liquid Decrease IV pain medications Uniquely much better and wants to be discharged this afternoon Has low phosphate and potassium-replacement Plan to discharge this afternoon Hypertension His blood pressure noted to be very high this morning That has been normalized since afternoon (2) Abdominal pain: Plan: DT acute pancreatitis (3) Renal transplant recipient: Plan: Status post renal transplant with history of Goodpasture's syndrome Creatinine is mildly elevated We will keep in touch with the transplant team if the condition gets worse Creatinine has been normalized (4) CKD (chronic kidney disease): Plan: Chronic kidney disease and stage III Creatinine has been improving with IV fluid Monitor PRP Plan: History of hypertension Continue Coreg and amlodipine GERD Has been on PPI Ongoing tobacco abuse Advised to quit DVT prophylaxis On Lovenox Admission and Anticipated Discharge Date Admission Date: May 30, 2021 Subjective 05/31/2021 The patient was seen and examined in medical floor He has been complaining of abdominal pain that goes to the back without any nausea and or vomiting or diarrhea He is feeling a little bit better since admission 06/01/2021 Patient was seen and examined in medical floor He has been feeling a little bit better with decreasing abdominal pain and no nausea and or vomiting or diarrhea Denies any other symptoms 06/02/2021 The patient was seen and examined in medical floor His abdominal pain is almost gone and denies any nausea and or vomiting He wants to go home today Review of Systems Review of Systems: All systems reviewed and are unremarkable except as noted below Gastrointestinal: Abdominal pain that goes to the back Physical Exam Physical Exam: Lying in bed with some discomfort Constitutional: well developed, well nourished, + ill appearing and + obese Eyes: PERRL, conjunctivae normal, anicteric sclerae ENMT: external ear and nose normal, oropharynx normal Neck: trachea midline, no thyromegaly Respiratory: no respiratory distress Auscultation: lungs clear to auscultation bilaterally Cardiovascular: Rate/Rhythm: regular rate and regular rhythm Heart Sounds: normal S1 and normal S2; no murmur Gastrointestinal (Abdomen): Inspection/Auscultation: abdomen not distended Percussion/Palpation: abdomen soft; abdomen nontender (Mildly tender in the epigastrium) Neurologic: moves all extremities Results & Data Results & Data ([place]) Vital Signs (Past 12 Hours) Vital Signs Temp Pulse Resp BP Pulse Ox 06/02/21 10:28 134/86 06/02/21 07:33 36.7 C 67 16 184/115 H 100 06/02/21 05:37 71 175/110 H Laboratory Results [facility] 06/02/21 06:09 Sodium 140 Potassium 3.5 Chloride 109 H Carbon Dioxide 24 BUN 14 Creatinine 1.25 Glucose 85 Calcium 9.5 Medications Administered Current Inpatient Medications Acetaminophen (Acetaminophen 325 Mg Tab) 650 mg PO Q4H PRN PRN Reason: pain/fever Stop: 06/30/21 01:14 Last Admin: 06/02/21 03:03 Dose: 650 mg Documented by: Amlodipine Besylate (Amlodipine Besylate 5 Mg Tab) 10 mg PO QAM [place] Stop: 06/30/21 08:59 Last Admin: 06/02/21 09:23 Dose: 10 mg Documented by: Aspirin (Aspirin 81 Mg Ectab) 81 mg PO DAILY [place] Stop: 06/30/21 08:59 Last Admin: 06/02/21 09:23 Dose: 81 mg Documented by: Carvedilol (Carvedilol 12.5 Mg Tab) 12.5 mg PO BID [place] Stop: 06/30/21 08:59 Last Admin: 06/02/21 09:23 Dose: 12.5 mg Documented by: Enoxaparin Sodium (Enoxaparin Inj 40 Mg/0.4 Ml Syr) 40 mg SQ Q24H [place] Stop: 06/30/21 05:59 Last Admin: 06/02/21 05:38 Dose: 40 mg Documented by: Famotidine (Famotidine 10 Mg Tablet) 10 mg PO HS [place] Stop: 06/30/21 20:59 Last Admin: 06/01/21 22:34 Dose: 10 mg Documented by: Hydromorphone HCl (Hydromorphone Inj 0.5 Mg/0.5 Ml Syr) 0.5 mg IV Q4H PRN PRN Reason: Pain Stop: 06/14/21 12:59 Last Admin: 06/02/21 07:50 Dose: 0.5 mg Documented by: Lactated Ringer's (Lr) 1,000 mls @ 150 mls/hr IV .Q6H40M [facility] Stop: 06/30/21 01:14 Last Admin: 06/02/21 14:25 Dose: Not Given Documented by: Potassium Phosphate 30 mmol/ (Sodium Chloride) 510 mls @ 88 mls/hr IV ONE ONE Stop: 06/02/21 17:17 Last Admin: 06/02/21 11:34 Dose: 88 mls/hr Documented by: Mycophenolate Mofetil (Mycophenolate Mofetil 250 Mg Cap) 1,000 mg PO BID [facility] Stop: 06/30/21 08:59 Last Admin: 06/02/21 09:22 Dose: 1,000 mg Documented by: Ondansetron HCl (Ondansetron Inj 2 Mg/Ml 2 Ml Vial) 4 mg IV Q6H PRN PRN Reason: Nausea Stop: 06/30/21 01:14 Pantoprazole Sodium (Pantoprazole 40 Mg Tab) 40 mg PO [facility]; Protocol Stop: 06/30/21 08:59 Last Admin: 06/02/21 09:22 Dose: 40 mg Documented by: Prednisone (Prednisone 5 Mg Tab) 5 mg PO DAILY [facility] Stop: 06/30/21 08:59 Last Admin: 06/02/21 09:22 Dose: 5 mg Documented by: Tacrolimus (Tacrolimus 1 Mg Cap) 1 mg PO QAM [facility] Stop: 06/30/21 08:59 Last Admin: 06/02/21 09:21 Dose: 1 mg Documented by: Tacrolimus (Tacrolimus 1 Mg Cap) 2 mg PO QPM [facility] Stop: 06/30/21 20:59 Last Admin: 06/01/21 21:41 Dose: 2 mg Documented by: (1) Acute pancreatitis Acute pancreatitis complication: unspecified Pancreatitis type: unspecified pancreatitis type Qualified Code(s): K85.90 - Acute pancreatitis without necrosis or infection, unspecified (2) Abdominal pain Abdominal location: unspecified location Qualified Code(s): R10.9 - Unspecified abdominal pain
--- NOTE | 2021-06-03 07:45 | Discharge Summary ---
Date of Service June 03, 2021 Admission HPI Per Admitting Provider DICTATED BY: Cash Obrien MD DATE OF ADMISSION: 05/30/2021. CHIEF COMPLAINT: Abdominal pain. HISTORY OF PRESENT ILLNESS: This is a 45-year-old male with past medical history significant for hyperlipidemia, hypothyroidism, pulmonary hypertension, history of chronic membranous glomerulonephritis, end-stage renal disease, status post renal transplant, history of alcoholism, history of anemia of chronic renal failure, history of ongoing tobacco abuse, presents with abdominal pain. The patient says he is having abdominal pain ongoing for 1 month. He was prescribed PPI, but it is not helping.Having nausea. He has lost his appetite and states he has lost some weight. The pain was not getting better, so came to the ER today. Imaging studies show acute on chronic pancreatitis and lipase is elevated at 1597. Currently hemodynamics are stable. Denies any other complaints. Normal bowel and bladder movements. Denies any hematuria or blood in the stools. He says sometimes he gets chest pain, shortness of breath, severe pain coming from his abdomen. Has smoker's cough. No fevers, no headache, no blurred visions, no earache, no runny nose, no sore throat, no dysphagia. Admission Exam Per Admitting Provider GENERAL: The patient is of moderate build, not in acute distress. VITAL SIGNS: Temperature 36, pulse 76, respiratory rate 13, blood pressure 149/111, oxygen 100% on room air. HEENT: Pupils equal, round and reactive to light. Oral mucosa moist. NECK: No JVD or neck masses. HEART: S1 and S2 heard. Regular rate and rhythm. No murmur, no gallop. RESPIRATORY SYSTEM: Normal AP diameter. No accessory muscle use. No wheezing, no crackles. ABDOMEN: Soft, bowel sounds present. Tenderness in the upper abdomen. Mild guarding, no rigidity, no distention. No CVA tenderness. CENTRAL NERVOUS SYSTEM: Cranial nerves II through XII are grossly intact, nonfocal. EXTREMITIES: No edema, no erythema. Principal Diagnosis Recurrent pancreatitis, hypertension, status post renal transplant with history of Goodpasture syndrome, CKD Discharge Exam Constitutional well developed, well nourished, + ill appearing and + obese Eyes PERRL, conjunctivae normal, anicteric sclerae ENMT external ear and nose normal, oropharynx normal Neck trachea midline, no thyromegaly Respiratory no respiratory distress Auscultation: lungs clear to auscultation bilaterally Cardiovascular Rate/Rhythm: regular rate and regular rhythm Heart Sounds: normal S1 and normal S2; no murmur Gastrointestinal (Abdomen) Inspection/Auscultation: abdomen not distended Percussion/Palpation: abdomen soft; abdomen nontender (Mildly tender in the epigastrium) Neurologic moves all extremities Discharge Data Allergies Allergy/AdvReac Type Severity Reaction Status Date / Time lisinopril Allergy Intermediate TONGUE AND Verified 05/30/21 22:56 LIPS SWELL Consultations 05/30/21 22:35 ED Decision to Admit Stat 05/31/21 08:00 Consult Gastroenterology Routine Ordered Studies 05/30/21 21:51 CT abd pelvis wo con Urgent Hospital Course (1) Acute pancreatitis: History of pancreatitis and was admitted with another attack of pancreatitis Presented with abdominal pain that goes to the back Elevated lipase to more than 1000 Has been on n.p.o., IV fluid and IV supportive medications Appreciate GI input and recommendation We will have EUS as an outpatient Lipid profile is unremarkable Clinically much better today with lipase is almost normal at 476 today We will advance diet to full liquid Decrease IV pain medications Uniquely much better and wants to be discharged this afternoon Has low phosphate and potassium-replacement Plan to discharge this afternoon Hypertension His blood pressure noted to be very high this morning That has been normalized since afternoon (2) Abdominal pain: DT acute pancreatitis (3) Renal transplant recipient: Status post renal transplant with history of Goodpasture's syndrome Creatinine is mildly elevated We will keep in touch with the transplant team if the condition gets worse Creatinine has been normalized (4) CKD (chronic kidney disease): Chronic kidney disease and stage III Creatinine has been improving with IV fluid Monitor PRP History of hypertension Continue Coreg and amlodipine GERD Has been on PPI Ongoing tobacco abuse Advised to quit DVT prophylaxis On Lovenox Total Time Total Time Spent Total Time Spent (In Minutes): 35 minutes Discharge Plan Discharge Items Patient Disposition: Home - Self-Care Reason For Visit: ABDOMINAL PAIN Discharge Diagnosis: Recurrent pancreatitis, hypertension, status post renal transplant with history of Goodpasture syndrome, CKD Condition on Discharge: Good Activity: Resume your previous activity Non-emergency contact: Primary Care Provider Call non-emergency contact if: you have any medication questions and your symptoms worsen Follow-up/Referrals: Jose A Azar MD [Primary Care Provider] - (Date & Time 06/07/2021 11:20 AM Provider Jose A Azar MD Department Family [facility] ) Diet: Regular Addtl Attending Provider Instructions: Please try to drink plenty of fluid Keep appointments with your primary care physician Advised to quit alcohol and tobacco [facility] will arrange for EUS in 4 to 6 weeks Please keep follow-up appointment with your transplant team Try to use the narcotics as less as possible to avoid confusion, drowsiness and constipation Pending Studies at Discharge: No Stand-Alone Forms: My [facility] Blucarat, Opioid Pain Management, Smoking Cessation Medications and DC Order Prescriptions: New oxycodone-acetaminophen [Percocet] 5-325 mg tablet 1 tab PO Q6H PRN (Reason: pain) Qty: 10 RF: 0 Continued mycophenolate mofetil [CellCept] 250 mg Capsule 1,000 mg PO BID RF: 0 tacrolimus 1 mg capsule 1 mg PO QAM RF: 0 carvedilol 12.5 mg tablet 12.5 mg PO BID RF: 0 prednisone 5 mg tablet 5 mg PO DAILY RF: 0 aspirin 81 mg Tablet,Delayed Release (Dr/Ec) 81 mg PO DAILY RF: 0 famotidine 10 mg Tablet 10 mg PO HS RF: 0 omeprazole 40 mg Capsule,Delayed Release(Dr/Ec) 40 mg PO QAM RF: 0 amlodipine [Norvasc] 10 mg tablet 10 mg PO QAM RF: 0 tacrolimus [Prograf] 1 mg capsule 2 mg PO QPM RF: 0 Discharge Orders: Discharge Order (Routine); Ordered 06/02/21 Ordered By: Mikey Joel/Other Patient Handouts: Preventing Deep Vein Thrombosis Admission Data Admit Date/Time: 05/30/21 23:34 Attending Provider: Mikey Lopez Admit Provider: Cash Obrien Primary Care Provider: Jose A Azar Other Providers: Cash Obrien ; Tyrel Zamora ; Chel Lamar ; Kameron Mccabe ; Zara Barrios ; Franki Sy ; Nubia Ordoñez ; Christophe Sotomayor ; Milton Sen ; Elham Ferreira ; Altagracia Espinosa ; Jeri Hensley ; Terrie Murillo ; Dom Garcia Other Interventions: Discharge Summary Assessment (RN) Last Done: 06/02/21 15:35
--- NOTE | 2021-06-13 11:02 | Coding Query ---
CODING QUERY To promote full compliance with coding requirements relating to patient care, provider participation is requested in all cases of bilingual recruiter uncertainty. Please assist us with the question(s) below: Coding Question(s): Per H&P, patient with End-Stage Renal Disease. Per your documentation, patient with CKD stage III. Please clarify CKD below: ( ) Patient with End-Stage Renal Disease (+) Patient with Chronic Kidney Disease stage III- It has been documented. ( ) Other Please Explain: Thank you Pete Buenrostro Principal Diagnosis: "that condition established after study, to be chiefly responsible for occasioning the admission of the patient to the hospital for care." Co-Existing Principal Diagnosis: "when two or more diagnoses equally meet the criteria for principal diagnosis as determined by the circumstances of admission, diagnostic work up, and/or therapy provided, and the Alphabetic Index, Tabular List, or another coding guideline does not provide sequencing direction, any one of the diagnoses may be sequenced first." "When the physician has documented what appears to be a current diagnosis in the body of the record, but has not included the diagnosis in the final diagnostic statement, the physician should be asked whether the diagnosis should be added." (Source Coding Clinic 2 QTR90. p3-4) NAGI
== END 2021-06-02 18:03 | disposition home or self-care (01) | DRG 439 ==
LOC: ED 19:10 → 3W 23:34